=== PATIENT | male | born 1950 | race Caucasian/White ===

== ENCOUNTER 2021-10-10 10:42 | Inpatient (IN) | payer OTHER ==
--- OUTSIDE RECORDS SUMMARY | 2021-10-10 10:45 | XMS REPORT | Continuity of Care Document ---
:1950 Author Organization [facility] t Address [address] [place] [address] [address]. [address] [place] [address] Care Team Providers Name Role Phone Doctor Unassigned, Name Primary Care Physician Unavailable Daryl Villaseñor MD Attending Clinician Daryl VILLASEÑOR Attending Clinician Unavailable Payers Payer Name Policy Type Policy Number Effective Date Expiration Date S ource Problems Condition Condition Condition Status Onset Resolution Last Treating Co mments Source Name Details Category Date Date Treatment Clinician Date No known No known Disease Unive rs active active ity of problems problems [facility] Allergies, Adverse Reactions, Alerts Allergy Allergy Status Severity Reaction(s) Onset Inactive Treating Comm ents Source Name Type Date Date Clinician NO KNOWN Drug Active Univers ALLERGIE Class it of [facility] Social History Social Habit Start Date Stop Date Quantity Comments Source Alcohol intake 2017-04-02 2017-04-02 Current [facility] 00:00:00 00:00:00 non-drinker of [facility] alcohol [place] (finding) Sex Ass[birth year] At [birth year] [facility] of 00:00:00 00:00:00 [facility] Smoking Status Start Date Stop Date Source Never smoker [facility] Medications Ordered Filled Start Stop Current Ordering Indication Dosage Frequency Signature Comments Components Source Medication Medication Date Date Medication? Clinician (SIG) Name Name JARDIANCE Yes 1{tbl} Take 1 Univ ers 25 mg Tab 6-06 tablet by itleticia o f 00:00: mouth [place] 00 daily. Medical Branch JENTADUETO Yes 1{tbl} Take 1 Uni vers XR 5-1,000 6-06 tablet by ity of mg TBph 00:00: mouth [place] 00 daily. Medical Branch losartan-hy Yes 1{tbl} Take 1 Un malcolm drochloroth 6-06 tablet by ity of iazide 00:00: mouth [place] 50-12.5 mg 00 daily. Medical per tablet Branch JARDIANCE Yes 1{tbl} Take 1 Univ ers 25 mg Tab 6-06 tablet by ity o f 00:00: mouth [place] 00 daily. Medical Branch JENTADUETO Yes 1{tbl} Take 1 Uni vers XR 5-1,000 6-06 tablet by ity of mg TBph 00:00: mouth [place] 00 daily. Medical Branch losartan-hy Yes 1{tbl} Take 1 Un malcolm drochloroth 6-06 tablet by ity of iazide 00:00: mouth [place] 50-12.5 mg 00 daily. Medical per tablet Branch JARDIANCE Yes 1{tbl} Take 1 Univ ers 25 mg Tab 6-06 tablet by ity o f 00:00: mouth [place] 00 daily. Medical Branch JENTADUETO Yes 1{tbl} Take 1 Uni vers XR 5-1,000 6-06 tablet by ity of mg TBph 00:00: mouth [place] 00 daily. Medical Branch losartan-hy Yes 1{tbl} Take 1 Un malcolm drochloroth 6-06 tablet by ity of iazide 00:00: mouth [place] 50-12.5 mg 00 daily. Medical per tablet Branch JARDIANCE Yes 1{tbl} Take 1 Univ ers 25 mg Tab 6-06 tablet by ity o f 00:00: mouth [place] 00 daily. Medical Branch JENTADUETO Yes 1{tbl} Take 1 Uni vers XR 5-1,000 6-06 tablet by ity of mg TBph 00:00: mouth [place] 00 daily. Medical Branch losartan-hy Yes 1{tbl} Take 1 Un malcolm drochloroth 6-06 tablet by ity of iazide 00:00: mouth [place] 50-12.5 mg 00 daily. Medical per tablet Branch JARDIANCE Yes 1{tbl} Take 1 Univ ers 25 mg Tab 6-06 tablet by ity o f 00:00: mouth [place] 00 daily. Medical Branch JENTADUETO Yes 1{tbl} Take 1 Uni vers XR 5-1,000 6-06 tablet by ity of mg TBph 00:00: mouth [place] 00 daily. Medical Branch losartan-hy Yes 1{tbl} Take 1 Un malcolm drochloroth 6-06 tablet by ity of iazide 00:00: mouth [place] 50-12.5 mg 00 daily. Medical per tablet Branch JARDIANCE Yes 1{tbl} Take 1 Univ ers 25 mg Tab 6-06 tablet by ity o f 00:00: mouth [place] 00 daily. Medical Branch JENTADUETO Yes 1{tbl} Take 1 Uni vers XR 5-1,000 6-06 tablet by ity of mg TBph 00:00: mouth [place] 00 daily. Medical Branch losartan-hy Yes 1{tbl} Take 1 Un malcolm drochloroth 6-06 tablet by ity of iazide 00:00: mouth [place] 50-12.5 mg 00 daily. Medical per tablet Branch losartan Yes Univers (COZAAR) 50 2-17 ity of mg tablet 00:00: [place] [facility] losartan 0 Yes Univers (COZAAR) 50 2-17 ity of mg tablet 00:00: [place] [facility] losartan 2014-0 Yes Univers (COZAAR) 50 2-17 ity of mg tablet 00:00: [place] [facility] losartan 2014-0 Yes Univers (COZAAR) 50 2-17 ity of mg tablet 00:00: [place] [facility] losartan 2014-0 Yes Univers (COZAAR) 50 2-17 ity of mg tablet 00:00: [place] [facility] losartan 2014-0 Yes Univers (COZAAR) 50 2-17 ity of mg tablet 00:00: [place] [facility] INVOKANA 0 Yes Univers 300 mg Tab 2-16 ity of 00:00: [place] [facility] INVOKANA 0 Yes Univers 300 mg Tab 2-16 ity of 00:00: [place] [facility] INVOKANA 0 Yes Univers 300 mg Tab 2-16 ity of 00:00: Medical Branch INVOKANA 0 Yes Univers 300 mg Tab 2-16 ity of 00:00: [place] [facility] 2014-0 Yes Univers 300 mg Tab 2-16 ity of 00:00: [place] [facility] 2014-0 Yes Univers 300 mg Tab 2-16 ity of 00:00: [place] [facility] OLGAMIKE 100 2014-0 Yes Univer s mg tablet 1-26 ity of 00:00: [place] [facility] OLGAMIKE 100 2014-0 Yes Univer s mg tablet 1-26 ity of 00:00: [place] [facility] OLGAMIKE 100 2014-0 Yes Univer s mg tablet 1-26 ity of 00:00: [place] [facility] OLGAMIKE 100 2014-0 Yes Univer s mg tablet 1-26 ity of 00:00: [place] [facility] OLGAMIKE 100 0 Yes Univer s mg tablet 1-26 ity of 00:00: [place] [facility] 0 Yes Univer s mg tablet 1-26 ity of 00:00: [place] [facility] 5 0 Yes Univer s mg Tab 8-28 ity of 00:00: [place] 00 Medical Branch [facility] 5 0 Yes Univer s mg Tab 8-28 ity of 00:00: [place] 00 Medical Branch [facility] 5 0 Yes Univer s mg Tab 8-28 ity of 00:00: [place] 00 [facility] Branch [facility] 5 0 Yes Univer s mg Tab 8-28 ity of 00:00: [place] 00 Medical Branch [facility] 5 0 Yes Univer s mg Tab 8-28 ity of 00:00: [place] 00 [facility] Branch [facility] 5 0 Yes Univer s mg Tab 8-28 ity of 00:00: [place] 00 Medical Branch atorvastati 0 Yes Univer s n (LIPITOR) 8-21 ity of 10 mg 00:00: [place] tablet 00 Medical Branch atorvastati 0 Yes Univer s n (LIPITOR) 8-21 ity of 10 mg 00:00: [place] tablet 00 Medical Branch atorvastati 0 Yes Univer s n (LIPITOR) 8-21 ity of 10 mg 00:00: [place] tablet 00 Medical Branch atorvastati 0 Yes Univer s n (LIPITOR) 8-21 ity of 10 mg 00:00: [place] tablet 00 Medical Branch atorvastati Yes Univer s n (LIPITOR) 8-21 ity of 10 mg 00:00: [place] tablet 00 Medical Branch atorvastati Yes Univer s n (LIPITOR) 8-21 ity of 10 mg 00:00: [place] tablet 00 Medical Branch ACCU-CHEK Yes Univers DANIEL PLUS 6-05 ity of strip 00:00: [place] 00 Medical Branch ACCU-CHEK Yes Univers DANIEL PLUS 6-05 ity of strip 00:00: [place] [facility] ACCU-CHEK Yes Univers DANIEL PLUS 6-05 ity of strip 00:00: [place] 00 Medical Branch ACCU-CHEK Yes Univers DANIEL PLUS 6-05 ity of strip 00:00: [place] [facility] ACCU-CHEK Yes Univers DANIEL PLUS 6-05 ity of strip 00:00: [place] [facility] ACCU-CHEK Yes Univers DANIEL PLUS 6-05 ity of strip 00:00: [place] [facility] Procedures This patient has no known procedures. Encounters Start End Encounter Admission Attending Care Care Encounter Source Date/Time Date/Time Type Type Clinicians Facility Department ID 2021-06-10 2021-06-10 [facility] [id number] Univers 13:53:18 14:34:40 Visit Marlo Brito MULTISPEC [id number] ity of IALTY [id number] [facility] [id number] [address] DIABETES [facility] 2021-06-10 2021-06-10 Outpatient Frank VILLASEÑOR [facility] [id number] Univers 14:15:00 14:15:[id number] [facility] 2021-06-10 2021-06-10 Outpatient Frank VILLASEÑOR [facility] [id number] Univers 14:15:00 14:15:[address] [facility] 2021-03-04 2021-03-04 Outpatient Frank VILLASEÑOR [facility] [id number] Univers 11:00:00 11:00:00 MARLO [id number] [facility] 2021-03-04 2021-03-04 [facility] [id number] Univers 11:00:00 11:00:[address] [facility] 2020-10-02 2020-10-02 [facility] [id number] Univers 13:30:00 13:30:00 MARLO [id number] [facility] 2020-04-02 2020-04-02 [facility] [id number] Univers 10:56:51 11:11:51 Visit Marlo Brit[facility]PEC [id number] [id number] [facility] [id number] [facility] AND [address] DIABETES CLINIC 2020-04-02 2020-04-02 [facility] [id number] 10:56:51 11:11:51 Visit Marlo Brito MULTISPEC [id number] IALTY [id number] [facility] [id number] [place] [id number] DIABETES [facility] 2020-04-02 2020-04-02 [facility] [id number] Univers 11:10:00 11:10:00 MARLO [id number] [facility] 2020-04-02 2020-04-02 [facility] [id number] Univers 11:10:00 11:10:[address] [facility] Results This patient has no known results.
--- NOTE | 2021-10-10 11:10 | RAD REPORT ---
EXAM DESCRIPTION: RAD - Chest Single View - 10/10/2021 11:04 am CLINICAL HISTORY: CHEST PAIN COMPARISON: No comparisons FINDINGS: Lines: None. Lungs: No evidence of edema or pneumonia. Pleural: No significant pleural effusions or pneumothorax. Cardiac: The heart size is within normal limits. Bones: No acute fractures. Other: IMPRESSION: No acute cardiopulmonary disease.
[2021-10-10 11:18] LABS: Absolute Lymphocytes (CBC) 1.2 K/uL (0.7-4.9); Basophils % 0.5 % (0-1.3); Hematocrit 46.4 % (39.6-49.0); Lymphocytes % 11.3 % (15.3-44.8); MPV 8.1 fL (7.6-11.3); RBC Red Blood Cell Count 5.16 M/uL (4.33-5.43)
[2021-10-10 11:19] LABS: Protime INR 0.97
[2021-10-10 11:42] LABS: Albumin 3.9 g/dL (3.4-5.0); Bilirubin Direct 0.2 mg/dL (0-0.2); Bilirubin Total 0.7 mg/dL (0.2-1.0); Magnesium 2.3 mg/dL (1.8-2.4); Potassium 3.5 mmol/L (3.5-5.1); Protein, Total 7.6 g/dL (6.4-8.2)
[2021-10-10] MEDS ORDERED: FAMOTIDINE 20 MG/2 ML VIAL IV ONE (11:56)
[2021-10-10] MEDS ORDERED: ASPIRIN 81 MG CHEWABLE TABLET ONE (11:56)
[2021-10-10] MEDS ORDERED: NITROGLYCERIN 1 GM PKT TD ONE (11:56)
--- NOTE | 2021-10-10 13:03 | CON ---
Date of Consultation: 10/10/2021 Reason For Consultation: Non-STEMI. History Of Present Illness: This is a 71-year-old male with history of Dnndi-Alpedmddq-Gzqol status post ablation many years ago. No other cardiac history. He has history of diabetes and hypertension , presented with chest pain, pressure-like, retrosternal, radiates to the upper arm, on and off since yesterday, lasts for about 30 minutes along with nausea. At the present time, his chest pain rated at 1/10. Evaluation with EKG, no acute abnormalities. However, he had elevated troponin. The patie nt is in n.p.o. status at this point in time. Past Medical History: As outlined above in HPI. Medications: Refer reconciliation sheet for detailed list. Allergies: HE IS ALLERGIC TO IODINE. Family History: No mature coronary artery disease, cancer. Social History: Does not smoke or drink. Does not use any drugs. Review of Systems: All systems reviewed and they were negative except as mentioned in the HPI. Physical Examination: Vital Signs: Reviewed. Head And Neck: Pupils are equal, reactive to light. Intact eye movements. No JVD. No cyanosis. N leda is supple. Thyroid is not enlarged. Lungs: Clear to auscultation bilaterally. No rhonchi, rales, or crackles. No accessory muscle use. Heart: Regular rate and rhythm. No extra sounds. Abdomen: Soft, nontender. Bowel sounds positive. No organomegaly. No masses or hernia. No rigidi ty or rebound. Extremities: No edema, clubbing, cyanosis. Intact pulses. Skin: No rash. Neurologic: Alert, awake, and oriented x3. No acute focal deficits appreciated. Investigation: Troponin is 1.0, creatinine is 1.04. His white blood cell count 11, hemoglobin 15.8. EKG without acute specific abnormalities. Assessment And Recommendation: 1.Fqh-KE-awnkchsli myocardial infarction. The patient has typical symptoms of elevated troponin, bu t ruling in acute coronary syndrome. Keep n.p.o. The patient was loaded with aspirin. We will take him to the cardiac laboratory sample carrier for coronary angiogram and PCI as indicated. 2.Diabetes. Check sugars and cover with insulin per sliding scale. SR/MODL Voice ID: [id number] Report ID: [id number]
[2021-10-10] MEDS ORDERED: ACETAMINOPHEN 500 MG TAB PO PRN (13:18)
[2021-10-10] MEDS ORDERED: ONDANSETRON 4 MG/2 ML VIAL IV PRN (13:18)
[2021-10-10] MEDS ORDERED: VERAPAMIL HCL 10 MG/4 ML VIAL IV ONE (13:19)
[2021-10-10] MEDS ORDERED: HEPARIN 5000 UNIT/ML 1 ML VIAL ONE (13:19)
[2021-10-10] MEDS ORDERED: ATROPINE SULF 1 MG/10 ML SYR IV ONE (13:20)
[2021-10-10] MEDS ORDERED: HEPA 1000U/500MLS 2,000 UNIT/1,000 ML BAG IV ONE (13:20)
[2021-10-10] MEDS ORDERED: NITROGLYCERIN 100 MCG/ML SYR (for cath lab use only) IV ONE (13:20)
--- NOTE | 2021-10-10 13:20 | P.HP ---
Certification for Inpatient Patient admitted to: Inpatient With expected LOS: >2 Midnights Practitioner: I am a practitioner with admitting privileges, knowledge of patient current condition, hospital course, and medical plan of care. Services: Services provided to patient in accordance with Admission requirements found in Title 42 Section 412.3 of the Code of Federal Regulations Patient History Date of Service: 10/10/21 Reason for admission: STEMI History of Present Illness: 71-year-old male, PMH: With Parkinson White status post ablation, insulin- dependent diabetes mellitus type 2, hypertension Presents to ED due to worsening chest tightness and left arm discomfort that began yesterday afternoon. Pain improved and then recurred early this morning, waking him from sleep. Continued to have 23 episodes of this. He denies any specific aggravating factors. Nothing has relieved the pain. He has not had this pain before. Denies prior coronary artery disease. In the ED, as noted to have elevated troponin, EKG without ST elevations. Cardiology was consulted and planning on taking the patient for cardiac catheterization. Allergies iodine Allergy (Unknown, Verified 10/10/21 16:09) Hives - Past Medical/Surgical History -: Ipxdp-Cycydcmia-Jjdjs s/p ablation -: DM2, insulin-dependent -: Hypertension -: ablation - Family History Mother -: Heart disease ([place]) - Social History Smoking Status: Never smoker Alcohol use: Yes Place of Residence: Home Review of Systems 10-point ROS is otherwise unremarkable Physical Examination - Physical Exam General: Alert, In no apparent distress, Oriented x3 HEENT: Mucous membr. moist/pink, Sclerae nonicteric Neck: Supple Respiratory: Clear to auscultation bilaterally Cardiovascular: No edema, Regular rate/rhythm, No murmurs Gastrointestinal: Soft and benign, Non-distended, No tenderness Musculoskeletal: No erythema, No tenderness Integumentary: No rashes Neurological: Normal speech, Normal strength at 5/5 x4 extr, Normal affect - Studies Laboratory Data (last 24 hrs) 10/10/21 11:09: PT 11.2, INR 0.97 10/10/21 11:09: WBC 11.00 H, Hgb 15.8, Hct 46.4, Plt Count 232 10/10/21 11:09: Sodium 140, Potassium 3.5, BUN 11, Creatinine 1.04, Glucose 150 H, Magnesium 2.3, Total Bilirubin 0.7, AST 17, ALT 24, Alkaline Phosphatase 53 Assessment and Plan - Advance Directives Does patient have a Living Will: No Does patient have a Durable POA for Healthcare: No Physician Review Additional Text: Problem list NSTEMI DM2, insulin-dependent Sjipx-Dgpnbxxro-Lagve status post ablation Hypertension N.p.o. for urgent cardiac catheterization in the next hour Discussed with cardiology, will discuss further after cardiac cath regarding medication recommendations We will obtain/confirm home medications and restart as appropriate Patient reports improvement of his chest tightness at this time, vitals stable Mother had an [place] Labs otherwise okay Accu-Cheks, sliding scale insulin Echo ordered Code: full Dispo: Anticipate DC home in 1-2 days, pending further work-up/cardiac catheterization Time Spent Managing Pts Care (In Minutes): 60
[2021-10-10] MEDS ORDERED: NA CHLORIDE 0.9% 500 ML ONE (13:53)
[2021-10-10] MEDS ORDERED: MIDAZOLAM HCL 2 MG/2 ML INJ ONE (13:53)
[2021-10-10] MEDS ORDERED: FENTANYL CITR 100 MCG/2 ML ONE (13:54)
[2021-10-10] MEDS ORDERED: DIPHENHYDRAMINE 50 MG/ML VIAL ONE (13:54)
[2021-10-10] MEDS ORDERED: METHYLPREDNISOLONE 125 MG INJ ONE (13:54)
--- NOTE | 2021-10-10 14:08 | EDPHYS ---
Physician Documentation [facility] Name: Gadiel Riggs Age: 71 yrs Sex: Male : 1950 Arrival Date: 10/10/2021 Time: 10:45 Bed 4 Private MD: Bunny Ramos B ED Physician Marko Barker HPI: 10/10 14:07 This 71 yrs old Male presents to ER via Ambulatory with complaints of Chest Pain, kdr Shoulder Pain, Arm Pain. 14:07 The patient or guardian reports chest pain that is located primarily in the anterior kdr chest wall, left, chest diffusely. Onset: suddenly, yesterday, Intermittent. The pain radiates to the left arm, the left shoulder. Associated signs and symptoms: Pertinent positives: nausea, shortness of breath, Pertinent negatives: cough, diaphoresis, dizziness, headache, lower extremity pain, lower extremity swelling, lightheadedness, near syncope, palpitations, recent travel, shortness of breath, syncope, vomiting. The chest pain is described as aching, a pressure. Duration: The patient or guardian reports multiple episodes, that are intermittent, that wax and wane, with no pattern. Modifying factors: The symptoms are alleviated by nothing. the symptoms are aggravated by exertion. Severity of pain: At its worst the pain was moderate severe in the emergency department the pain has resolved and did so while in waiting room. The patient has not experienced similar symptoms in the past. Historical: - Allergies: 11:00 No Known Allergies; ss - PMHx: 11:00 Hypertensive disorder; Hypercholesterolemia; ss - PSHx: 11:00 Neck sx; ss - Immunization history:: Client reports receiving the 2nd dose of the Covid vaccine. - Social history:: Smoking status: Patient denies any tobacco usage or history of. ROS: 14:07 Constitutional: Negative for fever, chills, and weight loss, Eyes: Negative for injury, kdr pain, redness, and discharge, ENT: Negative for injury, pain, and discharge, Neck: Negative for injury, pain, and swelling, Respiratory: Negative for shortness of breath, cough, wheezing, and pleuritic chest pain, Abdomen/GI: Negative for abdominal pain, nausea, vomiting, diarrhea, and constipation, Back: Negative for injury and pain, : Negative for injury, bleeding, discharge, and swelling, MS/Extremity: Negative for injury and deformity, Skin: Negative for injury, rash, and discoloration, Neuro: Negative for headache, weakness, numbness, tingling, and seizure activity. Psych: Negative for depression, anxiety, suicide ideation, homicidal ideation, and hallucinations, Allergy/Immunology: Negative for hives, rash, and allergies, Endocrine: Negative for neck swelling, polydipsia, polyuria, polyphagia, and marked weight changes, Hematologic/Lymphatic: Negative for swollen nodes, abnormal bleeding, and unusual bruising. 14:07 Cardiovascular: Positive for chest pain, with cough. Exam: 10:56 ECG was reviewed by the Attending Physician. kdr 14:07 Constitutional: This is a well developed, well nourished patient who is awake, alert, kdr and in no acute distress. Head/Face: Normocephalic, atraumatic. Eyes: Pupils equal round and reactive to light, extra-ocular motions intact. Lids and lashes normal. Conjunctiva and sclera are non-icteric and not injected. Cornea within normal limits. Periorbital areas with no swelling, redness, or edema. Neck: Trachea midline, no thyromegaly or masses palpated, and no cervical lymphadenopathy. Supple, full range of motion without nuchal rigidity, or vertebral point tenderness. No Meningismus. Chest/axilla: Normal chest wall appearance and motion. Nontender with no deformity. No lesions are appreciated. Respiratory: Lungs have equal breath sounds bilaterally, clear to auscultation and percussion. No rales, rhonchi or wheezes noted. No increased work of breathing, no retractions or nasal flaring. Abdomen/GI: Soft, non-tender, with normal bowel sounds. No distension or tympany. No guarding or rebound. No evidence of tenderness throughout. Back: No spinal tenderness. No costovertebral tenderness. Full range of motion. Skin: Warm, dry with normal turgor. Normal color with no rashes, no lesions, and no evidence of cellulitis. MS/ Extremity: Pulses equal, no cyanosis. Neurovascular intact. Full, normal range of motion. Neuro: Awake and alert, GCS 15, oriented to person, place, time, and situation. Cranial nerves II-XII grossly intact. Motor strength 5/5 in all extremities. Sensory grossly intact. Cerebellar exam normal. Normal gait. Psych: Awake, alert, with orientation to person, place and time. Behavior, mood, and affect are within normal limits. 14:07 Cardiovascular: Rate: normal, Rhythm: regular, Pulses: no pulse deficits are appreciated, Heart sounds: normal. Vital Signs: 10:58 BP 148 / 83; Pulse 72; Resp 16; Temp 97.9(TE); Pulse Ox 98% on R/A; Weight 86.18 kg; ss Height 5 ft. 10 in. (177.80 cm); 12:00 BP 145 / 76; Pulse 63; Resp 16 S; Pulse Ox 100% ; jg9 13:07 BP 118 / 78; Pulse 70; Resp 21; Pulse Ox 99% on R/A; ld1 10:58 Body Mass Index 27.26 (86.18 kg, 177.80 cm) ss MDM: 14:07 Patient medically screened. kdr 14:07 Data reviewed: vital signs, nurses notes, lab test result(s), radiologic studies. kdr Counseling: I had a detailed discussion with the patient and/or guardian regarding: the historical points, exam findings, and any diagnostic results supporting the discharge/admit diagnosis, lab results, radiology results, the need for further work-up and treatment in the hospital. Physician consultation:. 14:13 Physician consultation: Paresh Vallecillo MD regarding consult, patient's condition, need kdr to come to ED to see patient, and will see patient in ED, immediately. 10/10 10:51 Order name: Basic Metabolic Panel [facility] 10/10 10:51 Order name: CBC with Diff kdr 10/10 10:51 Order name: LFT's kdr 10/10 10:51 Order name: Magnesium; Complete Time: 11:56 kdr 10/10 10:51 Order name: NT PRO-BNP; Complete Time: 11:56 kdr 10/10 10:51 Order name: PT-INR; Complete Time: 11:56 kdr 10/10 10:51 Order name: Troponin (emerg Dept Use Only); Complete Time: 11:56 kdr 10/10 10:51 Order name: Basic Metabolic Panel; Complete Time: 11:56 EDMS 10/10 10:51 Order name: CBC with Automated Diff; Complete Time: 11:56 EDMS 10/10 10:51 Order name: Liver (Hepatic) Function; Complete Time: 11:56 EDMS 10/10 13:20 Order name: Comprehensive Metabolic Panel [facility] 10/10 13:20 Order name: Comprehensive Metabolic Panel [facility] 10/10 13:20 Order name: Lipid Profile [facility] 10/10 13:20 Order name: Lipid Profile [facility] 10/10 10:51 Order name: XRAY Chest (1 view); Complete Time: 11:56 kdr 10/10 10:51 Order name: EKG; Complete Time: 10:51 kdr 10/10 10:51 Order name: Cardiac monitoring; Complete Time: 11:02 kdr 10/10 10:51 Order name: EKG - Nurse/Tech; Complete Time: 11:02 kdr 10/10 10:51 Order name: IV Saline Lock; Complete Time: 11:11 kdr 10/10 10:51 Order name: Labs collected and sent; Complete Time: 11:11 kdr 10/10 13:18 Order name: CONS Physician Consult [facility] 10/10 13:20 Order name: Magnesium [facility] 10/10 13:20 Order name: Magnesium [facility] 10/10 13:21 Order name: NPO [facility] 10/10 13:21 Order name: CBC with Automated Diff [facility] 10/10 13:21 Order name: CBC with Automated Diff [facility] 10/10 13:37 Order name: COVID-19 SARS RT PCR (Document "Date of Onset" if Symptomatic) ld1 10/10 10:51 Order name: O2 Per Protocol; Complete Time: 11:02 kdr 10/10 10:51 Order name: O2 Sat Monitoring; Complete Time: 11:02 kdr EC:56 Rate is 68 beats/min. Rhythm is regular, Sinus Rhythm with No ectopy. QRS Curtis is kdr Normal. IN interval is normal. QRS interval is normal. QT interval is normal. Clinical impression: NSR w/ Non-specific ST/T Changes. Administered Medications: 12:05 Drug: Aspirin Chewable Tablet 324 mg Route: PO; [facility] 12:05 Drug: Nitro-Bid (nitroglycerin) Ointment 2 % 0.5 inches Route: Transdermal; Site: 5 anterior chest wall; 12:05 Drug: Pepcid (famotidine) 20 mg Route: IVP; Site: right antecubital; [facility] Disposition Summary: 10/10/21 14:07 Hospitalization Ordered Hospitalization Status: Inpatient Admission kdr Provider: Liu Rangel kdr Location: [facility] [employer] [facility] kdr Condition: Fair kdr Problem: new kdr Symptoms: have improved kdr Bed/Room Type: Standard kdr Room Assignment: kdr Diagnosis - Unstable angina kdr - Subsequent non-ST elevation (NSTEMI) myocardial infarction kdr Discharge Instructions: - Discharge Summary Sheet ld1 Forms: - Medication Reconciliation Form kdr - SBAR form ld1 Signatures: Dispatcher [employer] Marko Carrion MD MD kdr Smirch, Shelby, RN RN ss Sharon Smith RN RN [id number]
--- NOTE | 2021-10-10 14:08 | ER ---
Nurse's Notes [facility] Name: Gadiel Riggs Age: 71 yrs Sex: Male : 1950 Arrival Date: 10/10/2021 Time: 10:45 Bed 4 Private MD: Bunny Ramos B Diagnosis: Unstable angina;Subsequent non-ST elevation (NSTEMI) myocardial infarction Presentation: 10/10 10:58 Chief complaint: Patient states: episodes of pain to L arm and L side of chest that ss began last night. Pt reports that the episodes last 15-20 minutes before they subside. Coronavirus screen: Client denies travel out of the [place] in the last 14 days. Ebola Screen: Patient denies exposure to infectious person. Patient denies travel to an Ebola-affected area in the 21 days before illness onset. Initial Sepsis Screen: Does the patient meet any 2 criteria? No. Patient's initial sepsis screen is negative. Does the patient have a suspected source of infection? No. Patient's initial sepsis screen is negative. Risk Assessment: Do you want to hurt yourself or someone else? Patient reports no desire to harm self or others. Onset of symptoms was October 09, 2021. 10:58 Method Of Arrival: Ambulatory ss 10:58 Acuity: CAMACHO 3 ss Triage Assessment: 11:12 General: Appears in no apparent distress. slender, well groomed, well developed, well jh5 nourished, Behavior is calm, cooperative, appropriate for age. Pain: Complains of pain in chest and left arm. Cardiovascular: Reports chest pain. Historical: - Allergies: 11:00 No Known Allergies; ss - PMHx: 11:00 Hypertensive disorder; Hypercholesterolemia; ss - PSHx: 11:00 Neck sx; ss - Immunization history:: Client reports receiving the 2nd dose of the Covid vaccine. - Social history:: Smoking status: Patient denies any tobacco usage or history of. Screenin:13 Abuse screen: Denies threats or abuse. Denies injuries from another. Nutritional jh5 screening: No deficits noted. Tuberculosis screening: No symptoms or risk factors identified. Fall Risk None identified. Assessment: 12:30 Derm: Wound noted left arm Other: post surgical incisions noted-well approximated, jg9 minimal leaking/oozing blood, stitches present. 13:07 Reassessment: Patient appears in no apparent distress at this time. No changes from ld1 previously documented assessment. Patient and/or family updated on plan of care and expected duration. Pain level reassessed. 13:37 Pain: Denies pain. jg9 13:40 Pain: Pain began on and off for weeks. jg9 Vital Signs: 10:58 BP 148 / 83; Pulse 72; Resp 16; Temp 97.9(TE); Pulse Ox 98% on R/A; Weight 86.18 kg; Height 5 ft. 10 in. (177.80 cm); 12:00 BP 145 / 76; Pulse 63; Resp 16 S; Pulse Ox 100% ; jg9 13:07 BP 118 / 78; Pulse 70; Resp 21; Pulse Ox 99% on R/A; ld1 10:58 Body Mass Index 27.26 (86.18 kg, 177.80 cm) ED Course: 10:45 Patient arrived in ED. mr 10:46 Bunny Ramos MD is Private Physician. mr 10:50 Marko Barker MD is Attending Physician. kdr 11:00 Triage completed. ss 11:00 Arm band placed on right wrist. ss 11:02 Sharon Smith, ROSSY is Primary Nurse. 5 11:04 XRAY Chest (1 view) In Process Unspecified. EDMS 11:13 Patient has correct armband on for positive identification. Bed in low position. Call 5 light in reach. Side rails up X2. monitor technician on. Pulse ox on. NIBP on. 11:13 No provider procedures requiring assistance completed. Inserted saline lock: [address] [facility] in right antecubital area, using aseptic technique. 12:30 Patient maintains SpO2 saturation greater than 95% on room air. jg9 14:07 Liu Rangel MD is Hospitalizing Provider. kdr Administered Medications: 12:05 Drug: Aspirin Chewable Tablet 324 mg Route: PO; 5 12:05 Drug: Nitro-Bid (nitroglycerin) Ointment 2 % 0.5 inches Route: Transdermal; Site: [facility] anterior chest wall; 12:05 Drug: Pepcid (famotidine) 20 mg Route: IVP; Site: right antecubital; [facility] Outcome: 11:14 Condition: good [facility] 14:07 Decision to Hospitalize by Provider. kdr 14:26 Patient left the ED. eb Signatures: Dispatcher [employer] EDMS Marko Barker MD MD kdr Rivera, Ofelia Sutherland, RN RN Rayne Myers Lauren, RN RN ld1 Sharon Smith RN RN jh5 Michelle Trevizo9
[2021-10-10] MEDS ORDERED: TICAGRELOR 90 MG TABLET PO ONE (14:36)
[2021-10-10] MEDS ORDERED: ADENOSINE 6 MG/ 2ML VIAL IV ONE (14:43)
--- NOTE | 2021-10-10 16:03 | OP ---
Date of Procedure: 10/10/2021 Surgeon: MARITA REMY Procedures Performed: 1.Selective coronary angiogram. 2.PCI of severe mid LAD stenosis, which is the culprit for the IA and use of 3.5 x 16 mm Synergy khadar g-eluting stent. Complications: None. Bleeding: Less than 10 mL. Indications: Non-ST elevation myocardial infarction. Access: Right radial artery 6-Prydeinig closed with TR band. Description Of Procedure: After risks, benefits, and alternatives were explained, the patient agreed to procedure and signed informed consent. The patient was brought into the cardiac catheterization laboratory, prepped and draped in usual sterile fashion. Then, I accessed right radial artery using pediatric micropuncture kit and placed a 6-Prydeinig Slender sheath. The patient was premedicated with Solu-Medrol and Benadryl due to the contrast allergy history. Then, I took a 5-Prydeinig Edmond 4.0 cath eter into the aortic root over a J-wire, engaged the left main and right coronary artery, took standa rd views and determined the culprit lesion. Then, I exchanged for 6-Prydeinig EBU 3.5 guide into the ao rtic root, engaged left main, and gave systemic heparin to assure ACT level above 250 and gave 180 of Brilinta and the patient received aspirin already in the emergency room. Took a short Run-Through w bienvenido into the LAD, crossed the lesion, and distal portion of the artery and the lesion was prepped using a 3.5 x 12 mm balloon and then placed a 3.5 x 16 mm Synergy drug-eluting stent, which r estored a PATY-3 flow in the artery with 0% residual stenosis. I then removed the wire after satisfa ctory angiogram and then took the guide out and the sheath out, and placed TR band with good hemostas is. Findings: 1.Left main; normal. 2.LAD; proximal segment is normal. Mid segment with 99% stenosis with PATY 1 flow down the LAD, whi ch is a culprit of IA, status post successful PCI using 3.5 x 16 mm Synergy drug-eluting stent with r esultant 0% residual stenosis and PATY-3 flow. Diagonal branches are normal and distally they appear s to be normal. 3.The left circumflex is very small, non-dominant, no disease. 4.RCA; very large and dominant with mid 30% stenosis and then luminal regularities throughout. Conclusion: Severe mid LAD stenosis is the culprit of the IA, status post successful PCI as above wi th resultant PATY-3 flow. Plan: Continue Brilinta, aspirin, , high dose of statin, observe overnight in the hospital , obtain echo in the morning, and start low-dose beta-oscar, metoprolol 25 mg twice a day, and if c ontinue to be stable, can probably be released tomorrow and we will follow up with him as an outpatie nt. /HITESH Voice ID: [id number] Report ID: [id number]
[2021-10-10] MEDS: METOPROLOL TAR 25 MG TAB PO SCH (20:54)
[2021-10-10] MEDS: TICAGRELOR 90 MG TABLET PO SCH (20:56)
[2021-10-10] MEDS ORDERED: ATORVASTATIN 80 MG TAB PO SCH (21:00)
[2021-10-10] MEDS ORDERED: ATORVASTATIN 40 MG TAB ONE (21:01)
[2021-10-10] MEDS: INSULIN -REGULAR HUMAN 50 UNIT/0.5 ML ML SQ SCH (21:06)
[2021-10-10] MEDS ORDERED: NITROGLYCERIN 0.4 MG/TAB SL PRN (22:45)
[2021-10-11 01:34] VITALS: BMI 27.2
[2021-10-11 05:35] LABS: Absolute Lymphocytes (CBC) 1.1 K/uL (0.7-4.9); Basophils % 0.4 % (0-1.3); Hematocrit 42.6 % (39.6-49.0); Lymphocytes % 7.6 % (15.3-44.8); MPV 8.6 fL (7.6-11.3); RBC Red Blood Cell Count 4.73 M/uL (4.33-5.43)
[2021-10-11 05:56] LABS: Albumin 3.3 g/dL (3.4-5.0); Bilirubin Total 0.7 mg/dL (0.2-1.0); Magnesium 2.3 mg/dL (1.8-2.4); Potassium 3.9 mmol/L (3.5-5.1); Protein, Total 6.9 g/dL (6.4-8.2)
[2021-10-11] MEDS: METOPROLOL TAR 25 MG TAB PO SCH (06:00)
[2021-10-11] MEDS ORDERED: METOPROLOL TAR 25 MG TAB PO SCH (06:30)
[2021-10-11 06:36] LABS: Blood Morphology Comment NOT SEEN (NOT SEEN); Platelet Estimate ADEQ; Toxic Granulation 1+; White Blood Cell Scan OK (OK)
[2021-10-11] MEDS: INSULIN -REGULAR HUMAN 50 UNIT/0.5 ML ML SQ SCH ×2 (07:30→11:30)
[2021-10-11 07:53] VITALS: TEMP 98.2
[2021-10-11] MEDS: TICAGRELOR 90 MG TABLET PO SCH (08:50)
[2021-10-11] MEDS ORDERED: POTASSIUM CL SA 10 MEQ TAB PO ONE ×2 (08:54→09:00)
[2021-10-11 08:56] VITALS: O2SAT 100
[2021-10-11] MEDS ORDERED: ASPIRIN EC 81 MG TAB PO SCH (09:00)
[2021-10-11 13:44] VITALS: BP 142/72
--- NOTE | 2021-10-11 13:55 | PN ---
Date of Progress Note: 10/11/2021 Subjective: The patient was seen at bedside, asymptomatic, anxious to go home. Does not have any ch est pain or shortness of breath. No other symptoms. Physical Examination: Vital Signs: Temperature is 98.2, pulse 65, breathing 16, blood pressure is 147/71, saturating 97% o n room air. General: Pleasant, elderly male, in no distress. Head And Neck: Pupils are equal, reactive to light. Intact eye movements. No JVD. No cervical lym phadenopathy. Neck: Supple. Thyroid is not enlarged. Lungs: Clear to auscultation bilaterally. No rhonchi, wheezing, or crackles. No accessory muscle u se. Heart: Regular rate and rhythm. No extra sounds. Abdomen: Soft, nontender. Bowel sounds positive. No organomegaly. No masses or hernia. No rigidi ty or rebound. Extremities: No edema, clubbing, cyanosis. Intact pulses. Skin: No rash noted. Neuro: Alert, awake, oriented x3. No acute focal associated fasciculations. Investigation: Creatinine 0.93. Troponin was 1. No further troponins were checked. Assessment And Recommendations: Inq-DE-wvvttamkj myocardial infarction, status post PCI of mid LAD. No significant coronary artery disease elsewhere. From Cardiology standpoint, the patient is stable for discharge. Please make sure the patient is on Brilinta, aspirin, Lipitor 80 and metoprolol at d ischarge and follow up with me on Thursday to obtain an echocardiogram as an outpatient and establish o utpatient care. Thank you for the consult. SR/MODL Voice ID: [id number] Report ID: [id number]
--- NOTE | 2021-10-11 16:32 | P.DS ---
Admission Date: 10/10/21 Discharge Date: 10/11/21 Disposition: ROUTINE DISCHARGE Discharge Condition: GOOD Reason for Admission: STEMI Consultations: Cardiology - Dr. Vallecillo Procedures: Cardiac catheterization (10/10): By Dr. Vallecillo Stent placement in LAD. Noted to have 99% stenosis of LAD Problem list NSTEMI s/p stent in LAD Hypertension DM2, insulin-dependent Cxmts-Umkcnbhrm-Yrewt status post ablation Brief History of Present Illness: 71-year-old male, PMH: With Parkinson White status post ablation, insulin- dependent diabetes mellitus type 2, hypertension Presents to ED due to worsening chest tightness and left arm discomfort that began yesterday afternoon. Pain improved and then recurred early this morning, waking him from sleep. Continued to have 23 episodes of this. He denies any specific aggravating factors. Nothing has relieved the pain. He has not had this pain before. Denies prior coronary artery disease. In the ED, as noted to have elevated troponin, EKG without ST elevations. Cardiology was consulted and planning on taking the patient for cardiac catheterization. Hospital Course: Patient was taken for urgent cardiac catheterization from the ER by cardiology. He underwent PCI of mid LAD due to 99% stenosis. No significant coronary artery disease elsewhere. Patient was monitored overnight, he continued to do well, chest pain resolved. Discharged home to continue aspirin, start Brilinta, atorvastatin 80 mg, and metoprolol Follow-up with PCP within 1 week Follow-up with cardiology this coming week. Unable to have an echocardiogram performed due to the holiday and lack of personnel. Patient will follow up in the cardiology office this week. Vital Signs/Physical Exam: Temp Pulse Resp BP Pulse Ox 98.2 F 63 18 142/72 H 97 10/11/21 12:00 10/11/21 12:00 10/11/21 12:00 10/11/21 12:00 10/11/21 12:00 General: Alert, In no apparent distress HEENT: Atraumatic, PERRLA, EOMI Neck: No LAD Respiratory: Clear to auscultation bilaterally, Normal air movement Cardiovascular: No edema, Regular rate/rhythm Gastrointestinal: Soft and benign, Non-distended Musculoskeletal: No tenderness Integumentary: No rashes, No significant lesion Neurological: Normal speech, Normal strength at 5/5 x4 extr, Normal affect Laboratory Data at Discharge: WBC 14.30 K/uL (4.3-10.9) H D 10/11/21 05:03 Hgb 14.4 g/dL (13.6-17.9) 10/11/21 05:03 Hct 42.6 % (39.6-49.0) 10/11/21 05:03 Plt Count 251 K/uL (152-406) 10/11/21 05:03 PT 11.2 SECONDS (9.5-12.5) 10/10/21 11:09 INR 0.97 10/10/21 11:09 Sodium 142 mmol/L (136-145) 10/11/21 05:03 Potassium 3.9 mmol/L (3.5-5.1) 10/11/21 05:03 BUN 17 mg/dL (7-18) 10/11/21 05:03 Creatinine 0.93 mg/dL (0.55-1.3) 10/11/21 05:03 Glucose 132 mg/dL (74-106) H 10/11/21 05:03 Magnesium 2.3 mg/dL (1.8-2.4) 10/11/21 05:03 Total Bilirubin 0.7 mg/dL (0.2-1.0) 10/11/21 05:03 AST 78 U/L (15-37) H 10/11/21 05:03 ALT 26 U/L (12-78) 10/11/21 05:03 Alkaline Phosphatase 46 U/L (45-117) 10/11/21 05:03 Triglycerides 79 mg/dL (<150) 10/11/21 05:03 Cholesterol 126 mg/dL (<200) 10/11/21 05:03 HDL Cholesterol 33 mg/dL (40-60) L 10/11/21 05:03 Cholesterol/HDL Ratio 3.82 10/11/21 05:03 Home Medications: Aspirin [Aspirin EC] 81 mg PO DAILY 10/11/21 Atorvastatin Calcium [Lipitor] 80 mg PO BEDTIME tab 10/11/21 Empagliflozin [Jardiance] 25 mg PO DAILY 10/11/21 Fenofibrate,Micronized [Fenofibrate] 134 mg PO DAILY 10/11/21 Linagliptin/Metformin HCl [Jentadueto 2.5 mg-500 mg Tab] 1 each PO BID 10/11/21 Losartan/Hydrochlorothiazide [Losartan-Hctz 50-12.5 mg Tab] 1 each PO DAILY 10/11/21 Metoprolol Tartrate [Lopressor*] 0.5 tab PO BID 60 Days #60 tab 10/11/21 Ticagrelor [Brilinta*] 90 mg PO BID tablet 10/11/21 New Medications: Metoprolol Tartrate [Lopressor*] 0.5 tab PO BID 60 Days #60 tab Followup: Paresh Vallecillo MD [ACTIVE - CAN ADMIT] - 10/14/21 ( ) Bunny Ramos MD [Primary Care Provider] - Time spent managing pt's care (in minutes): 45
== END 2021-10-11 15:38 | disposition home or self-care (01) | DRG 247 ==
LOC: ER 10:42 → ERHOLD 13:22 → UNDOADMIN 13:22 → 2ND 19:06
PROVIDERS: ADMIT Hospitalist; ATTEND Hospitalist
PROC: 027034Z Dilation of Coronary Artery, One Artery with Drug-eluting Intraluminal Device, Percutaneous Approach (ICD-10-PCS; principal; 2021-10-10)
PROC: 4A023N7 Measurement of Cardiac Sampling and Pressure, Left Heart, Percutaneous Approach (ICD-10-PCS; 2021-10-10)
PROC: B2111ZZ Fluoroscopy of Multiple Coronary Arteries using Low Osmolar Contrast (ICD-10-PCS; 2021-10-10)
DX: I21.4 Non-ST elevation (NSTEMI) myocardial infarction (principal); E11.9 Type 2 diabetes mellitus without complications; I10 Essential (primary) hypertension; I45.6 Pre-excitation syndrome; I20.0 Unstable angina; Z79.4 Long term (current) use of insulin; Z91.048 Other nonmedicinal substance allergy status; Z79.82 Long term (current) use of aspirin; Z79.899 Other long term (current) drug therapy; Z20.822 Contact with and (suspected) exposure to COVID-19
CPT/HCPCS: 36415; 71045; 80048; 80053; 80061; 80076; 82947; 83735; 83880; 84484; 85025; 85347; 85610; 93005; 93454; 94760; 96374; 99285; C1725; C1893; C9600; J0153; J1200; J1644; J2250; J2930; J3010; J7040; U0003